=== PATIENT | male | born 1960 | race Caucasian/White ===

== ENCOUNTER → 2016-10-22 | Outpatient (CLI) | payer OTHER, BC ==
[~2016-10-22] MED LIST: ASPIRIN (CHILDR81 MG PO; BRILINTA90 MG PO; LIPITOR80 MG PO; TOPROL XL25 MG PO; VASOTEC2.5 M1 PO
== END ==
LOC: LNHI 15:52
DX: I25.10 Atherosclerotic heart disease of native coronary artery without angina pectoris (principal)